=== PATIENT | female | born 1955 | race Caucasian/White ===

== ENCOUNTER 2018-10-17 15:05 | Emergency (ER) | payer OTHER, SELFPAY ==
[2018-10-17 15:42] VITALS: BP 142/86; PULSE 86; RESP 16; TEMP 36.7; O2SAT 99
--- NOTE | 2018-10-17 16:09 | DI.US.S_ITS ---
PROCEDURE: US PERIPH VENOUS LOW EXTREM LT INDICATIONS: LEFT LOWER LEG PAIN/SWELLING TECHNIQUE: Real-time imaging, as well as color and pulse Doppler interrogation, were performed of the lower extremity deep veins from the inguinal ligament to the popliteal fossa. COMPARISON: None. FINDINGS: The common femoral, femoral and popliteal veins are normally compressible, and free of intraluminal thrombus. Color and pulse Doppler demonstrate normal phasic intraluminal flow. There is normal augmentation response to distal compression maneuver. Study is mildly limited by the patient's inability to be placed in standard positioning for this study. IMPRESSION: Negative for deep venous thrombosis. Dictated by: Joselito Dallas M.D. on 10/17/2018 at 16:41 Approved by: Joselito Dallas M.D. on 10/17/2018 at 16:41
--- NOTE | 2018-10-17 18:13 | DI.RAD.S_ITS ---
PROCEDURE: XR KNEE LT 3V INDICATIONS: knee pain TECHNIQUE: 3 views of the knee were acquired. COMPARISON: None. FINDINGS: Bones: No fractures or dislocations. No suspicious bony lesions. Soft tissues: No joint effusion. No suspicious soft tissue calcifications. IMPRESSION: Intact left knee. Dictated by: Nuvia Anderson M.D. on 10/17/2018 at 19:03 Approved by: Nuvia Anderson M.D. on 10/17/2018 at 19:03
[2018-10-17 19:23] VITALS: PULSE 82
[2018-10-17] MEDS: TRAMADOL 50 MG TABLET PO (19:30)
[2018-10-17 19:32] VITALS: BP 132/72; PULSE 70; RESP 14; O2SAT 98
--- NOTE | 2018-10-17 19:59 | ED.EXTPRO ---
HPI - Extremity Problem <SAMSON Gee - Last Filed: 10/17/18 20:05> General Chief complaint: Extremity Problem,Nontraumatic Stated complaint: LT LEG SWELLING, REDNESS Time Seen by Provider: 10/17/18 18:05 Source: patient and family Mode of arrival: ambulatory Limitations: no limitations History of Present Illness HPI Narrative: The patient is a 63-year-old female with history of hypothyroid nonsmoker presents with chief complaint of pain and swelling in her left lower leg. She felt her left knee go out on her earlier today. She denies any fall or injury. She said it was red earlier and she saw her primary care provider, who was concerned about DVT. She also complains left lower back pain radiating down to her leg. She states she has been seeing her primary care doctor wrestle for this who diagnosed her with sciatica. He states that her left lower leg was red earlier today, but no longer is. She said that her left lower leg was swollen today but no longer is. She denies any numbness tingling incontinence of bowel or bladder or numbness. Related Data Home Medications Medication Instructions Recorded Confirmed bupropion HCl 200 mg PO DAILY 10/17/18 10/17/18 dextroamphetamine-amphetamine 30 mg PO DAILY 10/17/18 10/17/18 diazepam 10 mg PO TID PRN 10/17/18 10/17/18 duloxetine 60 mg PO DAILY 10/17/18 10/17/18 levothyroxine 50 mcg PO DAILY 10/17/18 10/17/18 liothyronine 5 mcg PO DAILY 10/17/18 10/17/18 methocarbamol 500 - 1,000 mg PO QID PRN 10/17/18 10/17/18 Previous Rx's Medication Instructions Recorded lidocaine 1 patch TOP DAILY #15 each 10/17/18 tramadol 50 mg PO Q6H PRN #10 tab 10/17/18 Allergies Allergy/AdvReac Type Severity Reaction Status Date / Time Sulfa (Sulfonamide Allergy Intermediate delusional, Verified 10/17/18 19:30 Antibiotics) paranoid [SULFA (SULFONAMIDE ANTIBIOTICS)] codeine AdvReac Severe Hallucinati Verified 10/17/18 19:30 ng Review of Systems <SAMSON Gee - Last Filed: 10/17/18 20:05> Review of Systems GENERAL: Denies chills, fatigue, malaise, fever, sweats. HEENT: Denies sinus pain, ear pain, sore throat, difficulty swallowing, dizziness. RESPIRATORY: Denies dyspnea, cough, wheezing, hemoptysis, sputum. CARDIOVASCULAR: Denies chest pain, palpitations, orthopnea, edema, GASTROINTESTINAL: Denies nausea, vomiting, abdominal pain, diarrhea, constipation, melena. : Denies dysuria, frequency, incontinence, hematuria, urinary retention. MUSCULOSKELETAL: See HPI SKIN: See HPI NEUROLOGIC: Denies weakness, headache, numbness, change in speech, confusion, seizures, incoordination. PSYCHIATRIC: No concerning psychosocial issues. 12 point review of systems is negative except for those stated above PFSH <SAMSON Gee - Last Filed: 10/17/18 20:05> Medical History (Updated 10/17/18 @ 20:04 by SAMSON Gee) Hypothyroid (Acute) Sciatica (Acute) Exam <SAMSON Gee - Last Filed: 10/17/18 20:05> Narrative Exam Narrative: GENERAL: This is a well-nourished, well-developed patient, no acute distress HEAD: Atraumatic. Normocephalic. No temporal or scalp tenderness. EYES: Pupils equal round and reactive. Extraocular motions intact. No scleral icterus. No injection or drainage. NECK: Trachea midline. No JVD or lymphadenopathy. Supple, nontender, no meningeal signs. CARDIOVASCULAR: Regular rate and rhythm RESPIRATORY: No cough. No increased respiratory effort. EXTREMITIES: The left lower leg is soft to palpation. Positive pedal pulse left leg. No instability palpated any. BACK: Nontender without deformity or crepitance. No flank tenderness. NEURO: AOx3. SKIN: No rash or erythema. No erythema left lower leg. Scattered ecchymoses and spider veins noted left lower leg. Initial Vital Signs Initial Vital Signs: Vital Signs Temperature 98.1 F 10/17/18 15:42 Pulse Rate 86 10/17/18 15:42 Respiratory Rate 16 10/17/18 15:42 Blood Pressure 142/86 H 10/17/18 15:42 Pulse Oximetry 99 10/17/18 15:42 <Chantel Demarco MD - Last Filed: 10/17/18 20:11> Initial Vital Signs Initial Vital Signs: Vital Signs Temperature 98.1 F 10/17/18 15:42 Pulse Rate 86 10/17/18 15:42 Respiratory Rate 16 10/17/18 15:42 Blood Pressure 142/86 H 10/17/18 15:42 Pulse Oximetry 99 10/17/18 15:42 Course <SAMSON Gee - Last Filed: 10/17/18 20:05> Orders Ordered: ED Orders 10/17/18 16:09 US periph venous low extrem lt Stat 10/17/18 18:13 XR knee LT 3V Stat Discontinued Medications Tramadol HCl (Ultram) 50 mg PO NOW ONE Stop: 10/17/18 19:23 Last Admin: 10/17/18 19:30 Dose: 50 mg Vital Signs - 8 hr 10/17/18 15:42 10/17/18 19:23 10/17/18 19:32 Temperature 98.1 F Pulse Rate 86 70 Pulse Rate [Left Dorsalis Pedis] 82 Respiratory Rate 16 14 Blood Pressure 142/86 H Blood Pressure [Left Arm] 132/72 Pulse Oximetry 99 98 <Chantel Demarco MD - Last Filed: 10/17/18 20:11> Orders Ordered: ED Orders 10/17/18 16:09 US periph venous low extrem lt Stat 10/17/18 18:13 XR knee LT 3V Stat Discontinued Medications Tramadol HCl (Ultram) 50 mg PO NOW ONE Stop: 10/17/18 19:23 Last Admin: 10/17/18 19:30 Dose: 50 mg Vital Signs - 8 hr 10/17/18 15:42 10/17/18 19:23 10/17/18 19:32 Temperature 98.1 F Pulse Rate 86 70 Pulse Rate [Left Dorsalis Pedis] 82 Respiratory Rate 16 14 Blood Pressure 142/86 H Blood Pressure [Left Arm] 132/72 Pulse Oximetry 99 98 MDM - Extremity (Nontraumatic) <SAMSON Gee - Last Filed: 10/17/18 20:05> Imaging Data Knee x-ray: Radiologist's impression: [address] [address] XRay Report Signed Patient: Larissa Dunbar [facility]#: [id number] : 6Acct:[id number] Age/Sex: 63 / FDate of Service: 10/17/18 Loc: ED Accession Number: [id number] Procedure: XR knee LT 3V Ordering Provider: Tameka FuentesBC PROCEDURE: XR KNEE LT 3V INDICATIONS: knee pain TECHNIQUE: 3 views of the knee were acquired. COMPARISON: None. FINDINGS: Bones: No fractures or dislocations. No suspicious bony lesions. Soft tissues: No joint effusion. No suspicious soft tissue calcifications. IMPRESSION: Intact left knee. Dictated by: Nuvia Anderson M.D. on 10/17/2018 at 19:03 Approved by: Nuvia Anderson M.D. on 10/17/2018 at 19:03 Venous US: Radiologist's impression: [place] [address] Ultrasound Report Signed Patient: Larissa Dunbar MMR#: [id number] : 6Acct:[id number] Age/Sex: 63 / FDate of Service: 10/17/18 Loc: ED Accession Number: [id number] Procedure: US periph venous low extrem lt Ordering Provider: Chantel Demarco MD PROCEDURE: US PERIP VENOUS LOW EXTREM LT INDICATIONS: LEFT LOWER LEG PAIN/SWELLING TECHNIQUE: Real-time imaging, as well as color and pulse Doppler interrogation, were performed of the lower extremity deep veins from the inguinal ligament to the popliteal fossa. COMPARISON: None. FINDINGS: The common femoral, femoral and popliteal veins are normally compressible, and free of intraluminal thrombus. Color and pulse Doppler demonstrate normal phasic intraluminal flow. There is normal augmentation response to distal compression maneuver. Study is mildly limited by the patient's inability to be placed in standard positioning for this study. IMPRESSION: Negative for deep venous thrombosis. Dictated by: Joselito Dallas M.D. on 10/17/2018 at 16:41 Approved by: Joselito Dallas M.D. on 10/17/2018 at 16:41 [facility] Narrative Medical decision making narrative: The patient is a 63-year-old female who presents with chief complaint of concern for DVT the under left lower leg. She had a negative ultrasound for clot as well as a negative x-ray. She is stable on her feet and hemodynamically stable. I did give her lidocaine patches as well as some tramadol for her pain. I encouraged her to follow up with her primary care provider soon as possible and discuss return precautions of back pain including incontinence of bowel, incontinence of bladder etc. Upon learning that her ultrasound was negative for clot, the patient discussed her back pain at length. I encouraged her to follow up with primary care provider discussed return precautions. The patient already has a prescription of Robaxin. Patient has no questions or concerns upon discharge and ambulates steadily outside of the emergency department. Discharge Plan Departure Patient Disposition: Home Clinical Impression: Acute leg pain Qualifiers: Laterality: left Qualified Code(s): M79.605 - Pain in left leg Back pain Qualifiers: Back pain location: low back pain Chronicity: acute Back pain laterality: left Sciatica presence: without sciatica Qualified Code(s): M54.5 - Low back pain Discharge Date/Time: 10/17/18 19:52 Interventions: ED Discharge Assessment Last Done: 10/17/18 19:51 Instructions: DI for Low Back Pain, DI for Sciatica, DI for Back Pain With Sciatica, DI for Leg Pain Activity Restrictions/Additional Instructions: Your ultrasound shows no clot. Your knee xray shows no abnormality of the knee. Please use rest ice compression elevation as well as ibuprofen or anti-inflammatories. I have given you a prescription of tramadol as well as lidocaine patches. The aware this can be constipating. Lidocaine patches can stay on for 12 hours and can be used once today. You can use the tramadol along with Robaxin and anti-inflammatories. The aware this can be sedating and constipating, so do not taken a drive. Please follow up with primary care provider soon as possible as he may need further imaging and/or physical therapy. Monitor for incontinence of bowel and bladder or numbness where you would sit on a horse. Be evaluated immediately if any of these occur. Prescriptions: New tramadol 50 mg tablet 50 mg PO Q6H PRN (Reason: pain) Qty: 10 RF: 0 lidocaine 5 % adhesive patch,medicated 1 patch TOP DAILY Qty: 15 RF: 0 No Action methocarbamol 500 mg tablet 500 - 1,000 mg PO QID PRN (Reason: muscle spasm) RF: 0 liothyronine 5 mcg tablet 5 mcg PO DAILY RF: 0 levothyroxine 50 mcg tablet 50 mcg PO DAILY RF: 0 diazepam 10 mg tablet 10 mg PO TID PRN (Reason: Anxiety) RF: 0 dextroamphetamine-amphetamine 30 mg capsule,extended release 24hr 30 mg PO DAILY RF: 0 bupropion HCl 200 mg tablet sustained-release 12 hr 200 mg PO DAILY RF: 0 duloxetine 60 mg capsule,delayed release(DR/EC) 60 mg PO DAILY RF: 0 Referrals: Roman Torres MD [Primary Care Provider] -
--- NOTE | 2018-10-17 20:05 | ED_ITS ---
HPI - Extremity Problem <SAMSON Gee - Last Filed: 10/17/18 20:05> General Chief complaint: Extremity Problem,Nontraumatic Stated complaint: LT LEG SWELLING, REDNESS Time Seen by Provider: 10/17/18 18:05 Source: patient and family Mode of arrival: ambulatory Limitations: no limitations History of Present Illness HPI Narrative: The patient is a 63-year-old female with history of hypothyroid nonsmoker presents with chief complaint of pain and swelling in her left lower leg. She felt her left knee go out on her earlier today. She denies any fall or injury. She said it was red earlier and she saw her primary care provider, who was concerned about DVT. She also complains left lower back pain radiating down to her leg. She states she has been seeing her primary care doctor wrestle for this who diagnosed her with sciatica. He states that her left lower leg was red earlier today, but no longer is. She said that her left lower leg was swollen today but no longer is. She denies any numbness tingling incontinence of bowel or bladder or numbness. Related Data Home Medications Medication Instructions Recorded Confirmed bupropion HCl 200 mg PO DAILY 10/17/18 10/17/18 dextroamphetamine-amphetamine 30 mg PO DAILY 10/17/18 10/17/18 diazepam 10 mg PO TID PRN 10/17/18 10/17/18 duloxetine 60 mg PO DAILY 10/17/18 10/17/18 levothyroxine 50 mcg PO DAILY 10/17/18 10/17/18 liothyronine 5 mcg PO DAILY 10/17/18 10/17/18 methocarbamol 500 - 1,000 mg PO QID PRN 10/17/18 10/17/18 Previous Rx's Medication Instructions Recorded lidocaine 1 patch TOP DAILY #15 each 10/17/18 tramadol 50 mg PO Q6H PRN #10 tab 10/17/18 Allergies Allergy/AdvReac Type Severity Reaction Status Date / Time Sulfa (Sulfonamide Allergy Intermediate delusional, Verified 10/17/18 19:30 Antibiotics) paranoid [SULFA (SULFONAMIDE ANTIBIOTICS)] codeine AdvReac Severe Hallucinati Verified 10/17/18 19:30 ng Review of Systems <SAMSON Gee - Last Filed: 10/17/18 20:05> Review of Systems GENERAL: Denies chills, fatigue, malaise, fever, sweats. HEENT: Denies sinus pain, ear pain, sore throat, difficulty swallowing, dizziness. RESPIRATORY: Denies dyspnea, cough, wheezing, hemoptysis, sputum. CARDIOVASCULAR: Denies chest pain, palpitations, orthopnea, edema, GASTROINTESTINAL: Denies nausea, vomiting, abdominal pain, diarrhea, constipation, melena. : Denies dysuria, frequency, incontinence, hematuria, urinary retention. MUSCULOSKELETAL: See HPI SKIN: See HPI NEUROLOGIC: Denies weakness, headache, numbness, change in speech, confusion, seizures, incoordination. PSYCHIATRIC: No concerning psychosocial issues. 12 point review of systems is negative except for those stated above PFSH <SAMSON Gee - Last Filed: 10/17/18 20:05> Medical History (Updated 10/17/18 @ 20:04 by SAMSON Gee) Hypothyroid (Acute) Sciatica (Acute) Exam <SAMSON Gee - Last Filed: 10/17/18 20:05> Narrative Exam Narrative: GENERAL: This is a well-nourished, well-developed patient, no acute distress HEAD: Atraumatic. Normocephalic. No temporal or scalp tenderness. EYES: Pupils equal round and reactive. Extraocular motions intact. No scleral icterus. No injection or drainage. NECK: Trachea midline. No JVD or lymphadenopathy. Supple, nontender, no meningeal signs. CARDIOVASCULAR: Regular rate and rhythm RESPIRATORY: No cough. No increased respiratory effort. EXTREMITIES: The left lower leg is soft to palpation. Positive pedal pulse left leg. No instability palpated any. BACK: Nontender without deformity or crepitance. No flank tenderness. NEURO: AOx3. SKIN: No rash or erythema. No erythema left lower leg. Scattered ecchymoses and spider veins noted left lower leg. Initial Vital Signs Initial Vital Signs: Vital Signs Temperature 98.1 F 10/17/18 15:42 Pulse Rate 86 10/17/18 15:42 Respiratory Rate 16 10/17/18 15:42 Blood Pressure 142/86 H 10/17/18 15:42 Pulse Oximetry 99 10/17/18 15:42 <Chantel Demarco MD - Last Filed: 10/17/18 20:11> Initial Vital Signs Initial Vital Signs: Vital Signs Temperature 98.1 F 10/17/18 15:42 Pulse Rate 86 10/17/18 15:42 Respiratory Rate 16 10/17/18 15:42 Blood Pressure 142/86 H 10/17/18 15:42 Pulse Oximetry 99 10/17/18 15:42 Course <SAMSON Gee - Last Filed: 10/17/18 20:05> Orders Ordered: ED Orders 10/17/18 16:09 US periph venous low extrem lt Stat 10/17/18 18:13 XR knee LT 3V Stat Discontinued Medications Tramadol HCl (Ultram) 50 mg PO NOW ONE Stop: 10/17/18 19:23 Last Admin: 10/17/18 19:30 Dose: 50 mg Vital Signs - 8 hr 10/17/18 15:42 10/17/18 19:23 10/17/18 19:32 Temperature 98.1 F Pulse Rate 86 70 Pulse Rate [Left Dorsalis Pedis] 82 Respiratory Rate 16 14 Blood Pressure 142/86 H Blood Pressure [Left Arm] 132/72 Pulse Oximetry 99 98 <Chantel Demarco MD - Last Filed: 10/17/18 20:11> Orders Ordered: ED Orders 10/17/18 16:09 US periph venous low extrem lt Stat 10/17/18 18:13 XR knee LT 3V Stat Discontinued Medications Tramadol HCl (Ultram) 50 mg PO NOW ONE Stop: 10/17/18 19:23 Last Admin: 10/17/18 19:30 Dose: 50 mg Vital Signs - 8 hr 10/17/18 15:42 10/17/18 19:23 10/17/18 19:32 Temperature 98.1 F Pulse Rate 86 70 Pulse Rate [Left Dorsalis Pedis] 82 Respiratory Rate 16 14 Blood Pressure 142/86 H Blood Pressure [Left Arm] 132/72 Pulse Oximetry 99 98 MDM - Extremity (Nontraumatic) <SAMSON Gee - Last Filed: 10/17/18 20:05> Imaging Data Knee x-ray: Radiologist's impression: [address] [address] XRay Report Signed Patient: Larissa Dunbar [facility]#: [id number] : 6Acct:[id number] Age/Sex: 63 / FDate of Service: 10/17/18 Loc: ED Accession Number: [id number] Procedure: XR knee LT 3V Ordering Provider: Tameka FuentesBC PROCEDURE: XR KNEE LT 3V INDICATIONS: knee pain TECHNIQUE: 3 views of the knee were acquired. COMPARISON: None. FINDINGS: Bones: No fractures or dislocations. No suspicious bony lesions. Soft tissues: No joint effusion. No suspicious soft tissue calcifications. IMPRESSION: Intact left knee. Dictated by: Nuvia Anderson M.D. on 10/17/2018 at 19:03 Approved by: Nuvia Anderson M.D. on 10/17/2018 at 19:03 Venous US: Radiologist's impression: [place] [address] Ultrasound Report Signed Patient: Larissa Dunbar MMR#: [id number] : 6Acct:[id number] Age/Sex: 63 / FDate of Service: 10/17/18 Loc: ED Accession Number: [id number] Procedure: US periph venous low extrem lt Ordering Provider: Chantel Demarco MD PROCEDURE: US PERIP VENOUS LOW EXTREM LT INDICATIONS: LEFT LOWER LEG PAIN/SWELLING TECHNIQUE: Real-time imaging, as well as color and pulse Doppler interrogation, were performed of the lower extremity deep veins from the inguinal ligament to the popliteal fossa. COMPARISON: None. FINDINGS: The common femoral, femoral and popliteal veins are normally compressible, and free of intraluminal thrombus. Color and pulse Doppler demonstrate normal phasic intraluminal flow. There is normal augmentation response to distal compression maneuver. Study is mildly limited by the patient's inability to be placed in standard positioning for this study. IMPRESSION: Negative for deep venous thrombosis. Dictated by: Joselito Dallas M.D. on 10/17/2018 at 16:41 Approved by: Joselito Dallas M.D. on 10/17/2018 at 16:41 [facility] Narrative Medical decision making narrative: The patient is a 63-year-old female who presents with chief complaint of concern for DVT the under left lower leg. She had a negative ultrasound for clot as well as a negative x-ray. She is stable on her feet and hemodynamically stable. I did give her lidocaine patches as well as some tramadol for her pain. I encouraged her to follow up with her primary care provider soon as possible and discuss return precautions of back pain including incontinence of bowel, incontinence of bladder etc. Upon learning that her ultrasound was negative for clot, the patient discussed her back pain at length. I encouraged her to follow up with primary care provider discussed return precautions. The patient already has a prescription of Robaxin. Patient has no questions or concerns upon discharge and ambulates steadily outside of the emergency department. Discharge Plan Departure Patient Disposition: Home Clinical Impression: Acute leg pain Qualifiers: Laterality: left Qualified Code(s): M79.605 - Pain in left leg Back pain Qualifiers: Back pain location: low back pain Chronicity: acute Back pain laterality: left Sciatica presence: without sciatica Qualified Code(s): M54.5 - Low back pain Discharge Date/Time: 10/17/18 19:52 Interventions: ED Discharge Assessment Last Done: 10/17/18 19:51 Instructions: DI for Low Back Pain, DI for Sciatica, DI for Back Pain With Sciatica, DI for Leg Pain Activity Restrictions/Additional Instructions: Your ultrasound shows no clot. Your knee xray shows no abnormality of the knee. Please use rest ice compression elevation as well as ibuprofen or anti- inflammatories. I have given you a prescription of tramadol as well as lidocaine patches. The aware this can be constipating. Lidocaine patches can stay on for 12 hours and can be used once today. You can use the tramadol along with Robaxin and anti-inflammatories. The aware this can be sedating and con stipating, so do not taken a drive. Please follow up with primary care provider soon as possible as he may need further imaging and/or physical therapy. Monitor for incontinence of bowel and bladder or numbness where you would sit on a horse. Be evaluated immediately if any of these occur. Prescriptions: New tramadol 50 mg tablet 50 mg PO Q6H PRN (Reason: pain) Qty: 10 RF: 0 lidocaine 5 % adhesive patch,medicated 1 patch TOP DAILY Qty: 15 RF: 0 No Action methocarbamol 500 mg tablet 500 - 1,000 mg PO QID PRN (Reason: muscle spasm) RF: 0 liothyronine 5 mcg tablet 5 mcg PO DAILY RF: 0 levothyroxine 50 mcg tablet 50 mcg PO DAILY RF: 0 diazepam 10 mg tablet 10 mg PO TID PRN (Reason: Anxiety) RF: 0 dextroamphetamine-amphetamine 30 mg capsule,extended release 24hr 30 mg PO DAILY RF: 0 bupropion HCl 200 mg tablet sustained-release 12 hr 200 mg PO DAILY RF: 0 duloxetine 60 mg capsule,delayed release(DR/EC) 60 mg PO DAILY RF: 0 Referrals: Roman Torres MD [Primary Care Provider] -
== END 2018-10-17 19:52 | disposition home or self-care (01) ==
PROVIDERS: Emergency Provider Nurse Practitioner Family; Family Provider Family Medicine; PCP Family Medicine
DX: M79.605 Pain in left leg (principal); M54.5 Low back pain; R60.9 Edema, unspecified; M25.562 Pain in left knee
CPT/HCPCS: 73562; 93971; 99282; 99284

== ENCOUNTER → 2020-03-11 10:21 | Outpatient (CLI) | payer MEDICARE, OTHER, SELFPAY ==
--- NOTE | 2020-03-11 | DI.US.S_ITS ---
PROCEDURE: US [facility] VENOUS LOW EXTREM BI INDICATIONS: Edema, unspecified TECHNIQUE: Real-time imaging, as well as color and pulse Doppler interrogation, were performed of the deep veins of both legs from the inguinal ligament to the popliteal fossa. COMPARISON: [facility], , [facility] VENOUS LOW EXTREM LT, 10/17/2018, 17:19. FINDINGS: Right: The common femoral, femoral and popliteal veins are normally compressible, and free of intraluminal thrombus. Color and pulse Doppler demonstrate normal phasic intravascular flow. There is normal augmentation response to distal compression maneuver. Left: The common femoral, femoral and popliteal veins are normally compressible, and free of intraluminal thrombus. Color and pulse Doppler demonstrate normal phasic intravascular flow. There is normal augmentation response to distal compression maneuver. IMPRESSION: Negative for deep venous thrombosis. Dictated by: Joselito Dallas M.D. on 03/11/2020 at 10:58 Approved by: Joselito Dallas M.D. on 03/11/2020 at 10:59
== END ==
PROVIDERS: Family Provider Family Medicine; PCP Family Medicine; Referring Provider Family Medicine; Visit Provider Family Medicine
DX: R60.9 Edema, unspecified (principal)
CPT/HCPCS: 93970

== ENCOUNTER → 2022-05-20 11:12 | Outpatient (CLI) | payer MEDICARE, OTHER, SELFPAY ==
--- NOTE | 2022-05-20 11:13 | DI.RAD.S_ITS ---
PROCEDURE: XR LUMBAR SPINE MIN 4V INDICATIONS: BACK PAIN TECHNIQUE: 5 views of the lumbar spine were acquired, including bilateral oblique views. COMPARISON: None. FINDINGS: Bones: 5 nonrib-bearing vertebrae are present. There is rightward curvature of the lumbar spine with a Holman angle of 6?. There is facet arthrosis in the lower lumbar spine with grade 1 anterolisthesis measuring 3 mm of L4-5. No vertebral body compression fractures. No suspicious bony lesions. Soft tissues: The aorta has atherosclerotic calcifications. Overlying bowel gas pattern is normal. No suspicious soft tissue calcifications. Oblique images: No pars defects. IMPRESSION: 1. Degenerative changes and facet arthrosis with grade 1 anterolisthesis of L4-5. 2. No acute abnormality. 3. Mild rightward curvature of the lumbar spine. Dictated by: Valdez Stapleton M.D. on 05/20/2022 at 12:36 Approved by: Valdez Stapleton M.D. on 05/20/2022 at 12:40
== END ==
PROVIDERS: Family Provider Family Medicine; PCP Family Medicine; Referring Provider Physical Medicine & Rehabilitation; Visit Provider Physical Medicine & Rehabilitation
DX: M47.26 Other spondylosis with radiculopathy, lumbar region (principal); M43.16 Spondylolisthesis, lumbar region; M48.062 Spinal stenosis, lumbar region with neurogenic claudication; M53.3 Sacrococcygeal disorders, not elsewhere classified; G62.9 Polyneuropathy, unspecified; M54.9 Dorsalgia, unspecified
CPT/HCPCS: 72110; 99214

== ENCOUNTER 2022-08-10 13:22 | Outpatient (CLI) | payer MEDICARE, OTHER, SELFPAY ==
[2022-08-10] VITALS (9 sets, daily range): BP systolic 136–157; BP diastolic 72–84; PULSE 73–82; RESP 14–20; TEMP 36.3; O2SAT 94–98
--- NOTE | 2022-08-10 13:24 | DI.RAD.S_ITS ---
PROCEDURE: PAIN L INTERLAMINAR/CAUDAL INJ INDICATIONS: SPONDYLOSIS COMPARISON: [facility], RG, MRI L-SPINE W/O CONTRAST, 06/16/2022, 12:10. [facility], CR, XR LUMBAR SPINE MIN 4V, 05/20/2022, 11:33. FINDINGS: Fluoroscopic spot filming was performed to verify placement of spinal needles at the L4-L5 level(s), as labeled on the films. Appropriate location(s) of the needle tip(s) was confirmed by injection of iodinated contrast. IMPRESSION: Fluoroscopy for pain management. Dictated by: Chris Perez M.D. on 08/10/2022 at 14:35 Approved by: Chris Perez M.D. on 08/10/2022 at 14:35
[2022-08-10] MEDS: MIDAZOLAM 2 MG/2 ML VIAL IV (14:13)
[2022-08-10] MEDS: BETAMETHASONE 30 MG/5 ML MDV 6 MG INJ (14:17)
[2022-08-10] MEDS: BUPIVACAINE 0.25% (PF) VIAL 2 ML INJ (14:17)
[2022-08-10] MEDS: DEXAMETHASONE 10 MG/ML VIAL 20 MG INJ (14:17)
[2022-08-10] MEDS: IOPAMIDOL 15 ML VIAL 3 ML INJ (14:17)
--- NOTE | 2022-08-10 14:29 | P.PCN_ITS ---
Date/Time/Diagnoses Date of procedure: 08/10/22 Time of procedure: 14:29 Pre-procedure diagnosis: 1. HNP WITH RADICULAR FEATURES, 2. MULTILEVEL CENTRAL STENOSIS, Post-procedure diagnosis: same Procedure Notes Procedure: 1. FLUOROSCOPICALLY GUIDED CONTRAST CONTROLLED INTERLAMINAR EPIDURAL STEROID INJECTION -L4/5 Indications: Larissa is referred by Dr. Torres for treatment of Bilateral Foraminal Stenosis R>L LE symptoms. Physician: Swapnil Bragg Total Fluoroscopy time (seconds): 9 Total sedation minutes: 12 Complications: none Procedure in detail & Post-procedure care: FINDINGS Multilevel Central Spinal Stenosis with Nerve Root Compression DESCRIPTION OF PROCEDURE Fluoroscopically guided, contrast-controlled L4/5 translaminar epidural steroid injection. Following review of allergy and review of potential side effects and complications, including, but not necessarily limited to, infection, allergic reaction, local tissue breakdown, temporary as well as permanent nerve injury, paralysis, stroke and possible , the patient indicated that the patient understood and agreed to proceed. An informed consent document was signed by the patient, witnessed by a nurse, and placed in the patient's chart. Additionally, other treatment options including modalities, medications, and physical therapy were reviewed with the patient. After review of previous anaesthesic history and IV conscious sedation the patient was deemed safe to proceed with today?s procedure with IV conscious sedation as ASA class II designation. Safety time-out was performed to confirm patient ID, procedure to be performed and site of procedure. IV sedation was accomplished with a combination of 2mg of Versed was administered by the RN after DO order, titrated to patient comfort during the course of the procedure while the patient remained responsive to all verbal commands In the prone position, following sterile prep and drape of the lumbar region, the L4/5 translaminar space was identified fluoroscopically. The skin was anesthetized via a 25-gauge, 1.5inch needle with 1% lidocaine solution. At this point, a 22-gauge short bevel spinal needle was atraumatically introduced and advanced under fluoroscopic guidance into the region of the L4/5 translaminar space. Depth was confirmed on lateral view. Radiological data, including multiple fluoroscopic views of the lumbar spine, reveal a spinal needle at the L4/5 translaminar space. Lateral views then show placement of the needle in the epidural space. Subsequent views show contrast material flowing superiorly and inferiorly in the epidural space. No vascular or intrathecal uptake is observed. At this point, using loss of resistance technique with saline and air, the epidural space was entered. This was confirmed following negative aspiration with injection of approximately 1.5cc of Isovue 200, showing excellent epidural flow without vascular or intrathecal uptake. At this point, 1cc of 1% lidocaine solution combined with 3cc or 20mg of dexamethasone and 6mg betamethasone was injected without incident. The patient tolerated the procedure well without signs or symptoms of complications prior to transfer to the recovery area continued monitoring without incident. The patient was then transferred to the recovery area where they were observed for an appropriate period of time after the injection. The patient reported a VAS score of 6 prior to the procedure and a post- procedure VAS of 0. POST OP INSTRUCTIONS The patient was provided a Pain Log to continue to record their response to the target-specific procedure prior to follow-up visit with their referring physician. Additionally, specific post-injection care instructions and a contact number to our office were provided if concerns arise regarding possible complications associated with the procedure are suspected.
== END 2022-08-10 14:48 | disposition home or self-care (01) ==
LOC: RAD 13:24
PROVIDERS: Family Provider Family Medicine; PCP Family Medicine; Referring Provider Physical Medicine & Rehabilitation; Visit Provider Physical Medicine & Rehabilitation
DX: M51.16 Intervertebral disc disorders with radiculopathy, lumbar region (principal); M48.061 Spinal stenosis, lumbar region without neurogenic claudication
CPT/HCPCS: 62323; 99152; J0702; J1100; J2250; J3490

== ENCOUNTER → 2022-11-17 12:01 | Outpatient (CLI) | payer MEDICARE, OTHER, SELFPAY ==
--- NOTE | 2022-11-17 | DI.US.S_ITS ---
PROCEDURE: US SOFT TISSUE HEAD AND NECK INDICATIONS: Localized enlarged lymph nodes TECHNIQUE: Real-time scanning was performed of the neck region of interest, with image documentation. COMPARISON: None. FINDINGS: At the patient indicated area of clinical concern, the soft tissues of the right posterior lateral neck, an ovoid/reniform hypoechoic structure is present measuring 2.0 x 0.6 x 1.5 cm. No definite echogenic hilum identified. IMPRESSION: A 2.0 cm structure is present within the superficial soft tissues of the right posterior lateral neck likely representing a prominent lymph node. The finding is nonspecific, clinical correlation is recommended and repeat imaging could be obtained as indicated such as an increase in size of the finding or development of symptoms such as pain. If evaluation of other neck lymph nodes is desired, CT could be obtained. Dictated by: Douglas Castillo M.D. on 11/17/2022 at 17:42 Approved by: Douglas Castillo M.D. on 11/17/2022 at 17:48
== END ==
PROVIDERS: Family Provider Family Medicine; PCP Family Medicine; Referring Provider Family Medicine; Visit Provider Family Medicine
DX: R59.0 Localized enlarged lymph nodes (principal); M47.816 Spondylosis without myelopathy or radiculopathy, lumbar region; M51.26 Other intervertebral disc displacement, lumbar region; G62.9 Polyneuropathy, unspecified; Z68.32 Body mass index [BMI] 32.0-32.9, adult; M48.062 Spinal stenosis, lumbar region with neurogenic claudication
CPT/HCPCS: 76536; 99215